=== PATIENT | female | born 1940 | race Caucasian/White ===

== ENCOUNTER 2019-08-03 20:18 | Emergency (ER) | payer OTHER ==
[~2019-08-03] VITALS: Ht 167.6 cm; Wt 60.0 kg
--- NOTE | 2019-08-03 20:24 | NUR ---
EKG DONE IN TRIAGE
--- NOTE | 2019-08-03 21:00 | NUR ---
Patient presents to ER with HTN. Patient states she was feeling slightly dizzy at home so she took her BP and it was high. She has a hx and takes meds which she is compliant with. Patient denies BAEZ, blurry vision, nausea, or CP. Patient is in NAD. Respirations even and unlabored.
[2019-08-03 21:11] LABS: BASOPHILS # (AUTO) 0.04 x10^3/uL (0-0.1); BASOPHILS % (AUTO) 0 % (0-1); EOSINOPHILS % (AUTO) 1 % (1-7); LYMPHOCYTES # (AUTO) 2.71 x10^3/uL (1-3.4); LYMPHOCYTES % (AUTO) 27 % (22-44); MD NO; MEAN CORPUSCULAR HEMOGLOBIN 30.8 pg (27.0-34.8); MEAN CORPUSCULAR HGB CONC 33.1 g/dL (32.4-35.8); MEAN CORPUSCULAR VOLUME 93.1 fL (80-100); MEAN PLATELET VOLUME 8.3 fL (7.4-10.4); MONOCYTES # (AUTO) 1.07 x10^3/uL (0.2-0.8); MONOCYTES % (AUTO) 11 % (2-9); NEUTROPHILS # (AUTO) 6.11 x10^3/uL (1.8-6.8); NEUTROPHILS % (AUTO) 61 % (42-75); PLATELET COUNT 289 x10^3/uL (130-400); RED BLOOD COUNT 4.67 x10^6/uL (3.82-5.3); RED CELL DISTRIBUTION WIDTH 14.7 % (9.6-15.2)
[2019-08-03 21:16] LABS: ALANINE AMINOTRANSFERASE 15 U/L (12-78); ALBUMIN 3.8 g/dL (3.4-5.0); ANION GAP 7 mmol/L (5-15); CALCIUM 8.9 mg/dL (8.5-10.1); CHLORIDE 105 mmol/L (98-107); CREATININE 1.04 mg/dL (0.55-1.02)
[2019-08-03 21:21] LABS: ALKALINE PHOSPHATASE 128 U/L (45-117); BILIRUBIN,TOTAL 0.7 mg/dL (0.2-1.0); TOTAL PROTEIN 7.5 g/dL (6.4-8.2); TROPONIN I < 0.015 ng/mL (0.000-0.045)
[2019-08-03 23:23] VITALS: BP 166/88
--- NOTE | 2019-08-03 23:24 | NUR ---
Patient discharge instructions given. All questions and concerns addressed. Patient ambulatory with a steady gait. Belongings with patient.
== END 2019-08-03 23:26 | disposition home or self-care (01) ==
LOC: ED 21:06
DX: R42 Dizziness and giddiness (principal); I10 Essential (primary) hypertension; F41.1 Generalized anxiety disorder; E78.00 Pure hypercholesterolemia, unspecified
CPT/HCPCS: 36415; 70450; 71045; 80053; 84484; 85025; 93005; 99284

== ENCOUNTER 2019-08-07 11:37 | Inpatient (IN) | payer OTHER ==
[~2019-08-07] VITALS: Ht 165.1 cm; Wt 58.0 kg
--- NOTE | 2019-08-07 12:05 | NUR ---
PT PRESENTING TO ER AFTER BEING SENT FROM WITH PVCs AND DIZZINESS. PT STATES SYMPTOMS HAVE BEEN SINCE LAST FRIDAY. NO CP, BAEZ, N/V, SOB REPORTED, JUST FELT LIKE HEART WAS RACING AND LIGHTHEADED. CONNECTED TO ALL MONITORING, VSS. AT BEDSIDE. CALL LIGHT WITHIN REACH. ORDERS RECEIVED. LAB AT BEDSIDE FOR COLLECTION.
[2019-08-07 12:21] LABS: BASOPHILS % (AUTO) 1 % (0-1); EOSINOPHILS # (AUTO) 0.04 x10^3/uL (0-0.4); EOSINOPHILS % (AUTO) 0 % (1-7); LYMPHOCYTES # (AUTO) 1.85 x10^3/uL (1-3.4); LYMPHOCYTES % (AUTO) 19 % (22-44); MD NO; MEAN CORPUSCULAR HEMOGLOBIN 30.7 pg (27.0-34.8); MEAN CORPUSCULAR HGB CONC 32.5 g/dL (32.4-35.8); MEAN CORPUSCULAR VOLUME 94.3 fL (80-100); MONOCYTES % (AUTO) 9 % (2-9); NEUTROPHILS # (AUTO) 6.81 x10^3/uL (1.8-6.8); NEUTROPHILS % (AUTO) 70 % (42-75); PLATELET COUNT 321 x10^3/uL (130-400); RED BLOOD COUNT 4.95 x10^6/uL (3.82-5.3); RED CELL DISTRIBUTION WIDTH 15.5 % (9.6-15.2)
[2019-08-07 12:34] LABS: ALANINE AMINOTRANSFERASE 13 U/L (12-78); ALBUMIN 3.8 g/dL (3.4-5.0); ANION GAP 8 mmol/L (5-15); CHLORIDE 107 mmol/L (98-107); CREATININE 0.96 mg/dL (0.55-1.02)
[2019-08-07 12:38] LABS: ALKALINE PHOSPHATASE 133 U/L (45-117); BILIRUBIN,TOTAL 0.6 mg/dL (0.2-1.0); TOTAL PROTEIN 7.8 g/dL (6.4-8.2); TROPONIN I < 0.015 ng/mL (0.000-0.045)
--- NOTE | 2019-08-07 13:02 | NUR ---
PT UP TO RESTROOM WITH STEADY GAIT. ALL RESULTS BACK, AWAITING RECHECK
--- NOTE | 2019-08-07 13:11 | NUR ---
MD TO BEDSIDE TO DISCUSS POC WITH PT AND FAMILY
[2019-08-07] MEDS ORDERED: ACETAMINOPHEN 325 MG TABLET PO PRN (13:30)
[2019-08-07] MEDS ORDERED: LABETALOL 5MG/ML, 20ML IVPush PRN (13:30)
[2019-08-07] MEDS ORDERED: ONDANSETRON 2MG/ML, 2ML IVPush PRN (13:30)
[2019-08-07] MEDS ORDERED: hydrALAzine 20 MG/ML, 1ML IVPush PRN (13:30)
--- NOTE | 2019-08-07 13:30 | NUR ---
HOSPITALIST AT BEDSIDE FOR ADMIT ASSESSMENT
[2019-08-07] MEDS ORDERED: VALS320T2 PO (13:49)
[2019-08-07] MEDS ORDERED: VIT1CAPS42 PO (13:49)
[2019-08-07] MEDS ORDERED: LEVO25TA4 PO (13:49)
[2019-08-07] MEDS ORDERED: MULT-717 PO (13:49)
[2019-08-07] MEDS ORDERED: AMLO-150 PO (13:49)
[2019-08-07] MEDS ORDERED: CALC1CAP8 PO (13:49)
--- NOTE | 2019-08-07 14:30 | NUR ---
REPORT GIVEN TO [facility], PT READY FOR TRANSPORT
[2019-08-07 14:50] VITALS: BP 159/88
[2019-08-07] MEDS ORDERED: PLEASE ENTER ALLERGIES MC SCH ×2 (15:00→15:35)
[2019-08-07] MEDS ORDERED: ACETAMINOPHEN 325 MG TABLET ONE (15:09)
[2019-08-07 16:06] LABS: TROPONIN I < 0.015 ng/mL (0.000-0.045)
[2019-08-07] MEDS: SODIUM CHLORIDE 0.9% 1,000 ML IV SCH (16:39)
[2019-08-07] MEDS: ENOXAPARIN 40 MG/0.4 ML SQ SCH (16:39)
[2019-08-07 17:11] VITALS: BP 153/76
[2019-08-07 17:12] VITALS: BP_SYST 125; BP_SYST 132; BP_DIAS 75; BP_DIAS 80
[2019-08-07 19:45] VITALS: BP 142/89
[2019-08-07 19:50] VITALS: BP 158/96
[2019-08-07] MEDS ORDERED: METOPROLOL TARTRATE 25 MG TABLET PO SCH (21:00)
[2019-08-07 21:10] LABS: TROPONIN I < 0.015 ng/mL (0.000-0.045)
[2019-08-07 21:35] VITALS: BP 165/76
[2019-08-07] MEDS: MELATONIN 5 MG TABLET PO PRN (21:38)
[2019-08-08] VITALS (8 sets, daily range): BP systolic 120–170; BP diastolic 77–95
[2019-08-08] MEDS: SODIUM CHLORIDE 0.9% 1,000 ML IV SCH ×3 (00:57→15:33)
[2019-08-08 04:31] LABS: BASOPHILS # (AUTO) 0.07 x10^3/uL (0-0.1); BASOPHILS % (AUTO) 1 % (0-1); EOSINOPHILS # (AUTO) 0.25 x10^3/uL (0-0.4); EOSINOPHILS % (AUTO) 3 % (1-7); LYMPHOCYTES # (AUTO) 3.45 x10^3/uL (1-3.4); LYMPHOCYTES % (AUTO) 39 % (22-44); MD NO; MEAN CORPUSCULAR HEMOGLOBIN 30.8 pg (27.0-34.8); MEAN CORPUSCULAR HGB CONC 32.9 g/dL (32.4-35.8); MEAN CORPUSCULAR VOLUME 93.7 fL (80-100); MEAN PLATELET VOLUME 8.5 fL (7.4-10.4); MONOCYTES # (AUTO) 1.01 x10^3/uL (0.2-0.8); MONOCYTES % (AUTO) 11 % (2-9); NEUTROPHILS # (AUTO) 4.05 x10^3/uL (1.8-6.8); NEUTROPHILS % (AUTO) 46 % (42-75); PLATELET COUNT 266 x10^3/uL (130-400); RED BLOOD COUNT 4.46 x10^6/uL (3.82-5.3)
[2019-08-08 04:41] LABS: ANION GAP 5 mmol/L (5-15); CALCIUM 7.9 mg/dL (8.5-10.1); CHLORIDE 112 mmol/L (98-107)
[2019-08-08 04:49] LABS: ALANINE AMINOTRANSFERASE 14 U/L (12-78); ALKALINE PHOSPHATASE 110 U/L (45-117); BILIRUBIN,TOTAL 0.6 mg/dL (0.2-1.0); CREATININE 0.72 mg/dL (0.55-1.02); TOTAL PROTEIN 6.2 g/dL (6.4-8.2); TROPONIN I < 0.015 ng/mL (0.000-0.045)
[2019-08-08] MEDS ORDERED: ACETAMINOPHEN 325 MG TABLET PO PRN (09:00)
[2019-08-08] MEDS ORDERED: SODIUM CHLORIDE 0.9% 1,000 ML IV SCH ×2 (12:30→13:23)
[2019-08-08] MEDS ORDERED: CARV3.1212 PO (14:04)
[2019-08-08] MEDS: ENOXAPARIN 40 MG/0.4 ML SQ SCH (15:33)
[2019-08-08] MEDS: CARVEDILOL 3.125 MG TABLET PO SCH (18:17)
[2019-08-08] MEDS: MELATONIN 5 MG TABLET PO PRN (21:13)
[2019-08-09] VITALS (13 sets, daily range): BP systolic 96–189; BP diastolic 61–91
[2019-08-09] MEDS: CARVEDILOL 3.125 MG TABLET PO SCH (05:13)
[2019-08-09] MEDS: SODIUM CHLORIDE 0.9% 1,000 ML IV SCH (10:12)
[2019-08-09] MEDS: ENOXAPARIN 40 MG/0.4 ML SQ SCH (15:06)
[2019-08-09] MEDS: METOPROLOL SUCCINATE 25 MG TAB.ER.24H PO SCH (21:00)
[2019-08-09] MEDS: MELATONIN 5 MG TABLET PO PRN (22:20)
[2019-08-10] VITALS (12 sets, daily range): BP systolic 114–186; BP diastolic 73–95
[2019-08-10] MEDS: SODIUM CHLORIDE 0.9% 1,000 ML IV SCH (04:30)
[2019-08-10] MEDS ORDERED: REGADENOSON 0.4 MG/5 ML SYRINGE ONE (08:02)
[2019-08-10] MEDS: METOPROLOL SUCCINATE 25 MG TAB.ER.24H PO SCH (08:48)
[2019-08-10] MEDS: ENOXAPARIN 40 MG/0.4 ML SQ SCH (15:44)
[2019-08-10] MEDS: MELATONIN 5 MG TABLET PO PRN (21:11)
[2019-08-11] VITALS (9 sets, daily range): BP systolic 115–176; BP diastolic 76–88
[2019-08-11] MEDS: SODIUM CHLORIDE 0.9% 1,000 ML IV SCH (01:35)
[2019-08-11] MEDS ORDERED: METOPROLOL SUCCINATE 25 MG TAB.ER.24H PO SCH (09:00)
[2019-08-11] MEDS ORDERED: METO25TA91 PO (10:19)
== END 2019-08-11 13:35 | disposition home or self-care (01) | DRG 312 ==
LOC: ED 12:12 → EDIP 13:21 → 5SO 14:45 → DCLOUNGE 08-11 13:25
PROVIDERS: ADMIT Internal Medicine; ATTEND Internal Medicine
DX: I95.1 Orthostatic hypotension (principal); E03.9 Hypothyroidism, unspecified; F41.1 Generalized anxiety disorder; I10 Essential (primary) hypertension; R00.2 Palpitations; R73.9 Hyperglycemia, unspecified; I49.3 Ventricular premature depolarization; Z82.49 Family history of ischemic heart disease and other diseases of the circulatory system; I25.2 Old myocardial infarction; Z87.891 Personal history of nicotine dependence; Z85.3 Personal history of malignant neoplasm of breast; Z88.1 Allergy status to other antibiotic agents; Z88.8 Allergy status to other drugs, medicaments and biological substances
CPT/HCPCS: 36415; 71045; 78452; 80053; 82533; 83735; 83880; 84443; 84484; 85025; 93005; 93017; 93306; 99285; G0378; J1650; J2785; A9502; J0360; J7030

== ENCOUNTER 2020-04-14 15:26 | Inpatient (IN) | payer OTHER ==
[~2020-04-14] VITALS: Ht 165.1 cm; Wt 57.5 kg
[~2020-04-14 15:26] MED LIST: AMLO-150 PO; CALC1CAP8 PO; CARV3.1212 PO; LEVO25TA4 PO; METO25TA91 PO; MULT-717 PO; VALS320T2 PO; VIT1CAPS42 PO
--- NOTE | 2020-04-14 16:03 | NUR ---
PT C/O LEFT BICEP PAIN AND LEFT FINGER TINGLING STARTING ABOUT 1330 TODAY. DENIES CP. PT STATES HOLDING NEW GRANDBABY YESTERDAY FOR QUITE A WHILE.
[2020-04-14 16:25] LABS: BASOPHILS # (AUTO) 0.04 x10^3/uL (0-0.1); BASOPHILS % (AUTO) 0 % (0-1); EOSINOPHILS # (AUTO) 0.03 x10^3/uL (0-0.4); EOSINOPHILS % (AUTO) 0 % (1-7); LYMPHOCYTES # (AUTO) 2.98 x10^3/uL (1-3.4); LYMPHOCYTES % (AUTO) 26 % (22-44); MD NO; MEAN CORPUSCULAR HEMOGLOBIN 30.7 pg (27.0-34.8); MEAN CORPUSCULAR HGB CONC 32.3 g/dL (32.4-35.8); MEAN CORPUSCULAR VOLUME 94.9 fL (80-100); MEAN PLATELET VOLUME 7.5 fL (7.4-10.4); MONOCYTES # (AUTO) 1.02 x10^3/uL (0.2-0.8); MONOCYTES % (AUTO) 9 % (2-9); NEUTROPHILS # (AUTO) 7.24 x10^3/uL (1.8-6.8); NEUTROPHILS % (AUTO) 64 % (42-75); PLATELET COUNT 312 x10^3/uL (130-400); RED BLOOD COUNT 4.66 x10^6/uL (3.82-5.3); RED CELL DISTRIBUTION WIDTH 15.4 % (9.6-15.2)
[2020-04-14 16:39] LABS: ALBUMIN 3.8 g/dL (3.4-5.0); ANION GAP 8 mmol/L (5-15); CALCIUM 9.2 mg/dL (8.5-10.1); CHLORIDE 105 mmol/L (98-107); CREATININE 0.87 mg/dL (0.55-1.02)
[2020-04-14 16:44] LABS: ALANINE AMINOTRANSFERASE 16 U/L (12-78); ALKALINE PHOSPHATASE 133 U/L (45-117); BILIRUBIN,TOTAL 0.6 mg/dL (0.2-1.0); TOTAL PROTEIN 7.6 g/dL (6.4-8.2); TROPONIN I < 0.015 ng/mL (0.000-0.045)
--- NOTE | 2020-04-14 16:55 | NUR ---
ALL RESULTS ARE BACK AT THIS TIME. CHART UP FOR RECHECK.
--- NOTE | 2020-04-14 17:43 | NUR ---
MD AT BEDSIDE TO UPDATE PT ON POC.
[2020-04-14] MEDS ORDERED: ASPIRIN 81 MG TABLET CHEW PO ONE (18:00)
[2020-04-14] MEDS ORDERED: ASPIRIN 81 MG TABLET CHEW ONE (18:50)
[2020-04-14] MEDS ORDERED: ENALAPRILAT 1.25 MG/ML, 2ML IV PRN (19:00)
[2020-04-14] MEDS ORDERED: ACETAMINOPHEN 325 MG TABLET PO PRN (19:30)
[2020-04-14] MEDS ORDERED: NITROGLYCERIN 0.4 MG BOTTLE (25 TABS) SL PRN (19:30)
[2020-04-14] MEDS ORDERED: BISACODYL 10 MG SUPP PR PRN (19:30)
[2020-04-14] MEDS ORDERED: ONDANSETRON ODT 4 MG PO PRN (19:30)
[2020-04-14] MEDS ORDERED: POLYETHYLENE GLYCOL 17 GM PACKET PO PRN (19:30)
[2020-04-14] MEDS ORDERED: MORPHINE SULFATE 4 MG/ML, 1ML IVPush PRN (19:30)
[2020-04-14 19:54] VITALS: BP 165/79
[2020-04-14] MEDS: SODIUM CHLORIDE FLUSH 10ML SYR IVF SCH (20:00)
[2020-04-14 23:57] LABS: TROPONIN I 0.049 ng/mL (0.000-0.045)
[2020-04-15 00:48] VITALS: BP 162/79
[2020-04-15 04:58] LABS: BASOPHILS # (AUTO) 0.07 x10^3/uL (0-0.1); BASOPHILS % (AUTO) 1 % (0-1); EOSINOPHILS # (AUTO) 0.22 x10^3/uL (0-0.4); EOSINOPHILS % (AUTO) 2 % (1-7); LYMPHOCYTES % (AUTO) 38 % (22-44); MD NO; MEAN CORPUSCULAR HEMOGLOBIN 30.8 pg (27.0-34.8); MEAN CORPUSCULAR HGB CONC 32.4 g/dL (32.4-35.8); MEAN CORPUSCULAR VOLUME 94.9 fL (80-100); MEAN PLATELET VOLUME 7.6 fL (7.4-10.4); MONOCYTES % (AUTO) 12 % (2-9); NEUTROPHILS # (AUTO) 4.66 x10^3/uL (1.8-6.8); NEUTROPHILS % (AUTO) 47 % (42-75); PLATELET COUNT 308 x10^3/uL (130-400); RED BLOOD COUNT 4.54 x10^6/uL (3.82-5.3); RED CELL DISTRIBUTION WIDTH 15.4 % (9.6-15.2)
[2020-04-15 05:10] LABS: CHLORIDE 108 mmol/L (98-107)
[2020-04-15 05:26] LABS: ANION GAP 8 mmol/L (5-15); CALCIUM 8.9 mg/dL (8.5-10.1); CHOL/HDL RATIO 2.3; CHOLESTEROL, TOTAL 142 mg/dL (140-239); CREATININE 0.82 mg/dL (0.55-1.02); HDL CHOL % 43 % (28-40); HDL CHOLESTEROL (DIRECT) 61 mg/dL (40-60); LDL CHOLESTEROL,CALCULATED 66 mg/dL (54-169); LDL/HDL RATIO 1.1 (0.5-3.0); TRIGLYCERIDES 75 mg/dL (50-200); TROPONIN I 0.149 ng/mL (0.000-0.045); VLDL CHOLESTEROL 15 mg/dL (0-25)
[2020-04-15] MEDS: LEVOTHYROXINE 25 MCG TABLET PO SCH (05:29)
[2020-04-15] MEDS: ASPIRIN 81 MG TABLET EC PO SCH (05:29)
[2020-04-15] MEDS ORDERED: ENALAPRILAT 1.25 MG/ML, 1ML IV PRN (07:00)
[2020-04-15 07:40] VITALS: BP 194/87
[2020-04-15] MEDS: MULTIVITAMIN 1 TABLET PO SCH (07:43)
[2020-04-15] MEDS: AMLODIPINE 10 MG TAB PO SCH (07:43)
[2020-04-15] MEDS: SENNA/DOCUSATE TABLET PO SCH (07:43)
[2020-04-15] MEDS: CALCIUM/VITAMIN D3 250-125 TABLET PO SCH (07:43)
[2020-04-15] MEDS: SODIUM CHLORIDE FLUSH 10ML SYR IVF SCH ×2 (07:49→20:00)
[2020-04-15] MEDS: PRESERVISION AREDS HOMEMEDPO SCH (09:00)
[2020-04-15] MEDS ORDERED: METOPROLOL SUCCINATE 25 MG TAB.ER.24H PO SCH (09:00)
[2020-04-15 10:00] VITALS: BP 167/91
[2020-04-15 10:53] VITALS: BP 148/75
[2020-04-15 13:41] VITALS: BP 124/77
[2020-04-15 18:29] VITALS: BP 123/76
[2020-04-15] MEDS ORDERED: LISINOPRIL 10 MG TABLET PO SCH (20:00)
[2020-04-16] VITALS (8 sets, daily range): BP systolic 91–126; BP diastolic 51–75
[2020-04-16] MEDS: ASPIRIN 81 MG TABLET EC PO SCH (05:20)
[2020-04-16] MEDS: LEVOTHYROXINE 25 MCG TABLET PO SCH (05:20)
[2020-04-16] MEDS: AMLODIPINE 10 MG TAB PO SCH (07:59)
[2020-04-16] MEDS: SODIUM CHLORIDE FLUSH 10ML SYR IVF SCH (07:59)
[2020-04-16] MEDS: MULTIVITAMIN 1 TABLET PO SCH (07:59)
[2020-04-16] MEDS: CALCIUM/VITAMIN D3 250-125 TABLET PO SCH (07:59)
[2020-04-16] MEDS: PRESERVISION AREDS HOMEMEDPO SCH (08:00)
[2020-04-16] MEDS: SENNA/DOCUSATE TABLET PO SCH (08:00)
[2020-04-16 08:23] LABS: TROPONIN I 0.154 ng/mL (0.000-0.045)
[2020-04-16] MEDS ORDERED: AMLO10TA8 PO (11:05)
[2020-04-16] MEDS ORDERED: ATOR40TA78 PO (11:05)
[2020-04-16] MEDS ORDERED: ASPI81TA45 PO (11:05)
== END 2020-04-16 12:50 | disposition home or self-care (01) | DRG 305 ==
LOC: ED 16:28 → EDIP 18:28 → INTOOBSV 18:28 → OBSVTOIN 19:01 → 5SO 19:32 → DCLOUNGE 04-16 12:37
PROVIDERS: ADMIT Family Medicine; ATTEND Hospitalist
DX: I16.1 Hypertensive emergency (principal); E78.5 Hyperlipidemia, unspecified; E03.9 Hypothyroidism, unspecified; E78.00 Pure hypercholesterolemia, unspecified; Z92.3 Personal history of irradiation; Z82.49 Family history of ischemic heart disease and other diseases of the circulatory system; Z79.899 Other long term (current) drug therapy; Q67.6 Pectus excavatum; Z85.3 Personal history of malignant neoplasm of breast
CPT/HCPCS: 36415; 71045; 80048; 80053; 80061; 84484; 85025; 93005; G0378

== ENCOUNTER 2020-04-18 13:02 | Emergency (ER) | payer OTHER ==
[~2020-04-18] VITALS: Ht 165.1 cm; Wt 55.9 kg
[~2020-04-18 13:02] MED LIST changes: +AMLO10TA8 PO; +ASPI81TA45 PO; +ATOR40TA78 PO
[2020-04-18] MEDS ORDERED: MECLIZINE CHEWABLE 25 MG TAB PO ONE (13:30)
[2020-04-18 13:49] LABS: BASOPHILS # (AUTO) 0.04 x10^3/uL (0-0.1); BASOPHILS % (AUTO) 0 % (0-1); EOSINOPHILS # (AUTO) 0.08 x10^3/uL (0-0.4); EOSINOPHILS % (AUTO) 1 % (1-7); LYMPHOCYTES % (AUTO) 24 % (22-44); MD NO; MEAN CORPUSCULAR HEMOGLOBIN 30.5 pg (27.0-34.8); MEAN CORPUSCULAR HGB CONC 32.2 g/dL (32.4-35.8); MEAN CORPUSCULAR VOLUME 94.6 fL (80-100); MEAN PLATELET VOLUME 7.3 fL (7.4-10.4); MONOCYTES # (AUTO) 0.93 x10^3/uL (0.2-0.8); MONOCYTES % (AUTO) 9 % (2-9); NEUTROPHILS # (AUTO) 6.76 x10^3/uL (1.8-6.8); NEUTROPHILS % (AUTO) 66 % (42-75); PLATELET COUNT 341 x10^3/uL (130-400); RED BLOOD COUNT 4.86 x10^6/uL (3.82-5.3); RED CELL DISTRIBUTION WIDTH 15.4 % (9.6-15.2)
[2020-04-18 14:00] LABS: ANION GAP 6 mmol/L (5-15); CALCIUM 9.2 mg/dL (8.5-10.1); CHLORIDE 106 mmol/L (98-107); CREATININE 0.87 mg/dL (0.55-1.02)
[2020-04-18] MEDS ORDERED: MECLIZINE CHEWABLE 25 MG TAB ONE (14:03)
[2020-04-18 14:04] LABS: TROPONIN I < 0.015 ng/mL (0.000-0.045)
[2020-04-18 14:19] VITALS: BP 157/73
--- NOTE | 2020-04-18 14:19 | NUR ---
URINE COLLECTED AND SENT TO LAB.
[2020-04-18 14:44] LABS: MICROSCOPIC AUTO
--- NOTE | 2020-04-18 15:59 | NUR ---
Patient given discharge instructions and they have confirmed that they understand the instructions. Patient ambulatory with steady gait.
== END 2020-04-18 16:00 | disposition home or self-care (01) ==
LOC: ED 13:45
DX: R42 Dizziness and giddiness (principal); R51 Headache; M79.602 Pain in left arm; I10 Essential (primary) hypertension
CPT/HCPCS: 36415; 70450; 80048; 81001; 82040; 84484; 85025; 87086; 93005; 99285

== ENCOUNTER → 2020-06-15 | Outpatient (CLI) | payer OTHER ==
[~2020-06-15] MED LIST changes: +AMLO-211 PO; -AMLO10TA8 PO; +REGADENOSON 0.4 MG/5 ML SYRINGE ONE
== END | disposition home or self-care (01) ==
LOC: CFH 07:32
PROVIDERS: ATTEND Internal Medicine Cardiovascular Disease
DX: I08.8 Other rheumatic multiple valve diseases (principal); I10 Essential (primary) hypertension; E78.5 Hyperlipidemia, unspecified; R07.9 Chest pain, unspecified; R00.2 Palpitations
CPT/HCPCS: 78452; 93017; 93306; A9502; J2785